=== PATIENT | female | born 1985 | race African-American/Black ===

== ENCOUNTER 2017-04-23 06:00 | Emergency (ER) | payer BC, OTHER ==
[~2017-04-23] VITALS: Ht 157.5 cm; Wt 61.2 kg
[~2017-04-23 06:00] MED LIST: AUGMENTIN 875875 MG PO; FLEXERIL PO; FLONASE 0.05%50 MCG NASAL; IBUPROFEN 600600 M1 PO; NAPROSYN500 MG PO; NORCO 5-325 TA1 EACH PO; PREDNISONE 20 M20 M1 PO; ZOFRAN ODT4 MG PO; ZPAK PO
[2017-04-23 06:06] VITALS: BP 153/113
[2017-04-23] MEDS ORDERED: HYDROCHLOROTHIA25 M2 PO (06:16)
[2017-04-23] MEDS ORDERED: VALIUM5 MG PO (06:43)
[2017-04-23] MEDS ORDERED: NORCO 5-325 TA1 EACH PO (06:43)
== END 2017-04-23 07:09 | disposition home or self-care (01) ==
LOC: ER 06:00
DX: M43.6 Torticollis (principal); F17.210 Nicotine dependence, cigarettes, uncomplicated; Z98.890 Other specified postprocedural states